=== PATIENT | female | born 1980 | race Caucasian/White ===

== ENCOUNTER → 2016-12-09 | Outpatient (CLI) | payer BC ==
--- NOTE | 2016-12-09 13:28 | KCIC ---
DATE: 12/09/2016 EXAM: MAMMO WENDIE SARITHA GIRON, BREAST LEFT HISTORY: Lump left breast COMPARISON: None This study was interpreted with the benefit of Computerized Aided Detection (CAD ). FINDINGS: Breast Density: FATTY The Breast Parenchyma is primarily fatty replaced. Breast parenchyma level density A.. The area of concern in the left breast was marked. No mass or abnormality is seen in either breast. No dominant mass or suspect calcifications are seen Targeted ultrasound of the left breast was performed. No mass or abnormality is seen in the area examined. IMPRESSION: Benign findings on mammography. Targeted ultrasound of the left breast is unremarkable. If there is a discrete, palpable, abnormality in the breast biopsy may be warranted despite unremarkable imaging.. BI-RADS CATEGORY: 2 BENIGN FINDING(S) RECOMMENDED FOLLOW-UP: CLIN FOLLOW UP IMAGING CLINICALLY INDICATED. PQRS compliance statement: Patient information was entered into a reminder system with a target due date for the next mammogram. Mammography is a sensitive method for finding small breast cancers, but it does not detect them all and is not a substitute for careful clinical examination. A negative mammogram does not negate a clinically suspicious finding and should not result in delay in biopsying a clinically suspicious abnormality. "Our facility is accredited by the [employer] Mammography Program." MTDD
== END | disposition home or self-care (01) ==
LOC: KCIC MAMMO 09:36
PROVIDERS: ATTEND Obstetrics & Gynecology
DX: N63.20 Unspecified lump in the left breast, unspecified quadrant (principal)
CPT/HCPCS: 76641; G0204; G0279; 77062; 77066